=== PATIENT | male | born 1975 | race Caucasian/White ===

== ENCOUNTER → 2021-03-07 | Outpatient (CLI) | payer MEDICARE, OTHER ==
--- NOTE | 2021-03-07 09:08 | CT ---
EXAMINATION TYPE: CT chest wo con DATE OF EXAM: 03/07/2021 COMPARISON: None HISTORY: Hemoptysis CT DLP: 1266.2 mGycm. Automated Exposure Control for Dose Reduction was Utilized. TECHNIQUE: CT scan of the thorax is performed without IV contrast. FINDINGS: LUNGS: The lungs are grossly clear, there is no concerning parenchymal mass or nodule identified. T here is no pleural effusion or pneumothorax seen. The tracheobronchial tree is patent. A groundglass changes are seen involving the lungs likely related to respiratory motion rather than pneumonitis co rrelate clinically. Single bleb is seen in the superior segment right lower lobe and there is a calci fied granuloma in the left lung apex. MEDIASTINUM: Lack of IV contrast is noted to limit evaluation for mediastinal and especially hilar ad enopathy. There are no definitive greater than 1 cm hilar or mediastinal lymph nodes. No cardiomega ly or pericardial effusion is seen. OTHER: Hypertrophic and degenerative changes of the spine.. IMPRESSION: 1. Groundglass changes seen involving the lungs may be on the basis of respiratory motion artifact co rrelate clinically to exclude mild pneumonitis. 2. Calcified granuloma left lung apex
== END | disposition home or self-care (01) ==
LOC: RADCTMAIN 08:21
PROVIDERS: ATTEND Family Medicine
DX: J84.10 Pulmonary fibrosis, unspecified (principal)
CPT/HCPCS: 71250

== ENCOUNTER → 2024-02-26 | Outpatient (CLI) | payer MEDICARE, OTHER ==
--- NOTE | 2024-02-26 12:22 | CT ---
EXAMINATION TYPE: CT abdomen pelvis wo con CT DLP: 3554.1 mGycm, Automated exposure control for dose reduction was used. DATE OF EXAM: 02/26/2024 11:54 AM COMPARISON: None CLINICAL INDICATION:Male, 48 years old with history of R10.9 UNSPECIFIED ABDOMINAL PAIN; pain, consti pation. TECHNIQUE: Axial CT abdomen pelvis wo con;Sagittal and coronal reformats were created on a separate workstation. Contrast used: mL of , (none if empty) Oral contrast used: with Oral Contrast (none if empty) FINDINGS: LOWER CHEST: Unremarkable ABDOMEN LIVER: Diffusely hypoattenuating parenchyma. GALLBLADDER AND BILE DUCTS: Unremarkable. PANCREAS: Unremarkable. SPLEEN: Unremarkable. ADRENAL GLANDS: Unremarkable. KIDNEYS AND URETERS: No evidence of hydronephrosis or renal calculus. The ureters are unremarkable. PELVIS BLADDER: Unremarkable REPRODUCTIVE: Unremarkable. ABDOMEN & PELVIS STOMACH AND BOWEL: No evidence of bowel obstruction. PERITONEUM/RETROPERITONEUM: No evidence of pneumoperitoneum or free fluid. VASCULATURE: No evidence of aortic aneurysm. MUSCULOSKELETAL: No acute osseous abnormalities LYMPH NODES: No gross evidence for lymphadenopathy. SOFT TISSUE/ABDOMINAL WALL: Fat-containing umbilical hernia. IMPRESSION: 1. Thickening of the wall near the ileocecal valve unclear if this is due to underdistention. Few pr ominent right lower quadrant lymph nodes in the mesentery near this loop of bowel. Further evaluation recommended. 2. No additional acute process in the abdomen or pelvis. 3. Hepatic steatosis. 4. Fat-containing umbilical hernia.
== END | disposition home or self-care (01) ==
LOC: RADCTMAIN 09:43
PROVIDERS: ATTEND Family Medicine
DX: K76.0 Fatty (change of) liver, not elsewhere classified (principal); K42.9 Umbilical hernia without obstruction or gangrene; K63.89 Other specified diseases of intestine
CPT/HCPCS: 74176

== ENCOUNTER → 2024-07-10 | Outpatient (CLI) | payer MEDICARE, OTHER ==
--- NOTE | 2024-07-10 17:43 | CA ---
Transthoracic Echo Report Name: Marin Patel Age: 49 Gender: M : 1975 Exam Date: 07/10/2024 13:38 Exam Location: [facility] Ht (in): 72 Wt (lb): 400 Ordering Physician: Augusto Kim MD Attending/Referring Phys: Araseli Rajan [facility] Unit Technician Mera Coleman RDCS Procedure CPT: Indications: I51.7 Cardiomegaly Cardiac Hx: Technical Quality: Technically difficult study Contrast 1: Total Dose (mL): Contrast 2: Total Dose (mL): MEASUREMENTS (Male / Female) Normal Values 2D ECHO LV Diastolic Diameter PLAX 4.7 cm 4.2 - 5.9 / 3.9 - 5.3 cm LV Systolic Diameter PLAX 3.0 cm IVS Diastolic Thickness 1.3 cm 0.6 - 1.0 / 0.6 - 0.9 cm LVPW Diastolic Thickness 1.2 cm 0.6 - 1.0 / 0.6 - 0.9 cm LV Relative Wall Thickness 0.5 RV Internal Dim ED PLAX 3.3 cm LA Systolic Diameter LX 3.4 cm 3.0 - 4.0 / 2.7 - 3.8 cm LV Diastolic Volume MOD BP 86.1 cm??? 67 - 155 / 56 - 104 cm??? LV Systolic Volume MOD BP 41.4 cm??? - / 19 - 49 cm??? LV Ejection Fraction MOD BP 51.9 % >= 55 % LV Cardiac Index MOD BP 1283.6 cm???/min???m??? LV Diastolic Volume MOD 4C 127.2 cm??? LV Systolic Volume MOD 4C 65.9 cm??? LV Ejection Fraction MOD 4C 48.2 % LV Cardiac Index MOD 4C 1760.6 cm???/min???m??? LV Diastolic Length 4C 8.2 cm LV Systolic Length 4C 7.2 cm LV Diastolic Volume MOD 2C 67.6 cm??? LV Systolic Volume MOD 2C 31.5 cm??? LV Ejection Fraction MOD 2C 53.4 % LV Cardiac Index MOD 2C 1036.4 cm???/min???m??? LV Diastolic Length 2C 8.1 cm LV Systolic Length 2C 6.4 cm LA Volume 59.2 cm??? 18 - 58 / 22 - 52 cm??? LA Volume Index 18.9 cm???/m??? 16 - 28 cm???/m??? M-MODE Aortic Root Diameter MM 3.6 cm AV Cusp Separation MM 2.7 cm DOPPLER AV Peak Velocity 161.4 cm/s AV Peak Gradient 10.4 mmHg MV Area PHT 3.1 cm??? Mitral E Point Velocity 92.7 cm/s Mitral A Point Velocity 70.3 cm/s Mitral E to A Ratio 1.3 MV Deceleration Time 245.9 ms TR Peak Velocity 331.4 cm/s TR Peak Gradient 43.9 mmHg Right Ventricular Systolic Press 57.0 mmHg FINDINGS Left Ventricle Left ventricular ejection fraction is estimated at 50-55 %. Left ventricular cavity size normal. Mildly increased septal wall thickness. No obvious regional wall motion abnormality. Interventricular septal shortness suggestive of pulmonary hypertension. Right Ventricle Mild right ventricular dilatation. Severe pulmonary hypertension. Right ventricular systolic pressure estimated at 57 mm hg. Right Atrium Normal right atrial size. No right atrial thrombus or mass seen. Left Atrium Mildly increased left atrial volume. Mildly increased left atrial area. No left atrial thrombus or mass present. Mitral Valve Structurally normal mitral valve. No mitral stenosis, regurgitation or prolapse. Aortic Valve Trileaflet aortic valve. No aortic valve stenosis or regurgitation. Tricuspid Valve Structurally normal tricuspid valve. Mild tricuspid regurgitation. Pulmonic Valve Structurally normal pulmonic valve. No pulmonic regurgitation. Pericardium No pericardial or pleural effusion. Aorta Normal size aortic root and proximal ascending aorta. CONCLUSIONS Technically difficult study LVEF 50 to 55% No obvious regional wall motion abnormality Mild concentric LVH Interventricular septal flattening, suggestive of pulmonary hypertension RVSP estimated at 57 mmHg Mild RV dilatation No significant valvular dysfunction appreciated Previewed by: Dr Mario Patel (Electronically Signed) Final Date: 10 July 2024 17:43
== END | disposition home or self-care (01) ==
LOC: RADECHMAIN 13:25
PROVIDERS: ATTEND Family Medicine
DX: I51.7 Cardiomegaly
CPT/HCPCS: 93306

== ENCOUNTER → 2024-11-05 | Outpatient (CLI) | payer MEDICARE, OTHER ==
--- NOTE | 2024-11-10 14:00 | P.PCN ---
Date of Procedure: 11/05/24 Operative Findings: Home sleep study testing Date of service is 11/05/2024 Pertinent history 49-year-old male patient suspected to have obstructive sleep apnea. Based on that, the patient was referred for a home sleep study testing to rule out the possibility of underlying obstructive sleep apnea. Note that the patient has been diagnosed having obstructive sleep apnea more than 10 years ago. He has been noncompliant to CPAP therapy and he is coming in for a revaluation. The patient is morbidly obese. Pertinent physical findings The patient has a weight of 420 pounds with a body mass index of 57 Technical description The [employer] ApneaLink system was used to complete his home sleep study. This is a type III home sleep study evaluation. The total recording duration was 8 hours and 56 minutes. The study started at 10:14 PM and ended at 7:11 AM. There was a total of 8 hours and 41 minutes of flow and oxygen saturation monitoring Results The respiratory analysis showed a total of 254 obstructive hypopneas and no obstructive apneas. The resulting AHI was 29.2. Oxygenation analysis The baseline pulse ox while awake was 93%. Average pulse ox during sleep was 89%. The patient spent approximately 3 hours of 58 minutes of sleep time below pulse ox of 89% Cardiac summary Average heart rate was 59 with a minimum heart rate of 47 and the maximum heart rate 98 Assessment Moderate to severe HERMANN with an AHI of 29.2. Obstructive respiratory events were essentially in the form of hypopneas associated with nocturnal oxygen saturations. Nocturnal oxygen desaturation with a minimum pulse ox of 74%. Patient spent approximately 4 hours of sleep time below pulse ox of 89% Obesity with a BMI of 57 [place] score is at 5 Pulmonary hypertension Plan Recommend CPAP therapy. If agreeable, the patient will be brought into the sleep center to undergo a CPAP titration. Encourage weight loss Complete the workup for dyspnea and pulmonary hypertension by Dr. Velázquez
== END ==
LOC: 3 N SLEEP 17:14
PROVIDERS: ATTEND Internal Medicine Critical Care Medicine
DX: G47.33 Obstructive sleep apnea (adult) (pediatric) (principal); E66.9 Obesity, unspecified; I27.20 Pulmonary hypertension, unspecified; Z68.43 Body mass index [BMI] 50.0-59.9, adult

== ENCOUNTER 2025-04-24 13:03 | Emergency (ER) | payer MEDICARE, OTHER ==
[2025-04-24 13:09] VITALS: BP 157/95; PULSE 88; RESP 16; TEMP 98.3
--- NOTE | 2025-04-24 13:34 | ED ---
General Adult HPI - General Chief complaint: Abdominal Pain Stated complaint: Abd Pain Time Seen by Provider: 04/24/25 13:15 Source: patient, RN notes reviewed Mode of arrival: ambulatory Limitations: no limitations - History of Present Illness Initial comments: 50-year-old male presents to the emergency department for evaluation of lower and left-sided abdominal pain. He notes that this has been going on for around a week. He notes that the pain has been getting worse. He does endorse some constipation and bloating. Denies any nausea or vomiting. Denies any recent fever, chills. Denies any prior abdominal surgeries. - Related Data Allergies Allergy/AdvReac Type Severity Reaction Status Date / Time cefdinir Allergy Rash/Hives Verified 04/24/25 13:14 codeine Allergy Rash/Hives Verified 04/24/25 13:14 ketorolac [From Toradol] Allergy Rash/Hives Verified 04/24/25 13:14 latex Allergy Rash/Hives Verified 04/24/25 13:15 methocarbamol [From Robaxin] Allergy Rash/Hives Verified 04/24/25 13:14 Penicillins Allergy Rash/Hives Verified 04/24/25 13:09 Sulfa (Sulfonamide Allergy Rash/Hives Verified 04/24/25 13:09 Antibiotics) tizanidine [From Zanaflex] Allergy Rash/Hives Verified 04/24/25 13:14 Review of Systems ROS Statement: Those systems with pertinent positive or pertinent negative responses have been documented in the HPI. ROS Other: All systems not noted in ROS Statement are negative. Past Medical History Past Medical History: Hyperlipidemia, Hypertension Additional Past Medical History / Comment(s): chronic back neck pain Past Surgical History: Orthopedic Surgery Smoking Status: Never smoker General Exam Limitations: no limitations General appearance: alert, in no apparent distress Head exam: Present: atraumatic, normocephalic, normal inspection Eye exam: Present: normal appearance, PERRL, EOMI. Absent: scleral icterus, conjunctival injection, periorbital swelling ENT exam: Present: normal exam, mucous membranes moist Neck exam: Present: normal inspection. Absent: tenderness, meningismus, lymphad enopathy Respiratory exam: Present: normal lung sounds bilaterally. Absent: respiratory distress, wheezes, rales, rhonchi, stridor Cardiovascular Exam: Present: regular rate, normal rhythm, normal heart sounds. Absent: systolic murmur, diastolic murmur, rubs, gallop, clicks GI/Abdominal exam: Present: distended, tenderness (Diffuse abdominal tenderness to palpation), normal bowel sounds. Absent: soft, guarding, rebound, rigid Extremities exam: Present: normal inspection, full ROM, normal capillary refill. Absent: tenderness, pedal edema, joint swelling, calf tenderness Neurological exam: Present: alert, oriented X3 Psychiatric exam: Present: normal affect, normal mood Skin exam: Present: warm, dry, intact, normal color. Absent: rash Course Vital Signs 04/24/25 13:06 Temperature 98.3 F Pulse Rate 88 Respiratory 16 Rate Blood Pressure 157/95 O2 Sat by Pulse 94 L Oximetry Medical Decision Making - Medical Decision Making Was pt. sent in by a medical professional or institution ([facility], [employer]AT [employer]ER, urgent care, hospital, or group home...) When possible be specific @ -No Did you speak to anyone other than the patient for history (EMS, parent, family, police, friend...)? What history was obtained from this source @ -No Did you review nursing and triage notes (agree or disagree)? Why? @ -I reviewed and agree with nursing and triage notes Were old charts reviewed (outside hosp., previous admission, EMS record, old EKG, old radiological studies, urgent care reports/EKG's, group home records)? Report findings @ -No old charts were reviewed Differential Diagnosis (chest pain, altered mental status, abdominal pain women, abdominal pain men, vaginal bleeding, weakness, fever, dyspnea, syncope, headache, dizziness, GI bleed, back pain, seizure, CVA, palpatations, mental health, musculoskeletal)? @ -[Differential Abdominal Pain Men: Appendicitis, cholecystitis, diverticulosis, ischemic bowel, pancreatitis, hepatitis, UTI, gastroenteritis, AAA, incarcerated hernia, bowel obstruction, constipation, inflammatory bowel, hepatitis, peptic ulcer disease, splenic infarction, perforated viscus, testicular torsion, this is not meant to be an all-inclusive list EKG interpreted by me (3pts min.). @ -None X-rays interpreted by me (1pt min.). @ -None done CT interpreted by me (1pt min.). @ -CT of the abdomen pelvis reveals no evidence of acute process U/S interpreted by me (1pt. min.). @ -None done What testing was considered but not performed or refused? (CT, X-rays, U/S, labs)? Why? @ -None What meds were considered but not given or refused? Why? @ -None Did you discuss the management of the patient with other professionals (professionals i.e. , PA, BOAT LABORER, lab, RT, psych nurse, social security specialist, media relations associate, teacher, correctional officer lieutenant, high risk case manager)? Give summary @ -No Was smoking cessation discussed for >3mins.? @ -No Was critical care preformed (if so, how long)? @ -No Were there social determinants of health that impacted care today? How? (Homelessness, low income, unemployed, alcoholism, drug addiction, transportation, low edu. Level, literacy, decrease access to med. care, snf, rehab)? @ -No Was there de-escalation of care discussed even if they declined (Discuss DNR or withdrawal of care, Hospice)? DNR status @ -No What co-morbidities impacted this encounter? (DM, HTN, Smoking, COPD, CAD, Cancer, CVA, ARF, Chemo, Hep., AIDS, mental health diagnosis, sleep apnea, morbid obesity)? @ -None Was patient admitted / discharged? Hospital course, mention meds given and route, prescriptions, significant lab abnormalities, going to OR and other pertinent info. @ -Discharge. Patient presented the emergency department for evaluation of abdominal pain. Laboratory studies obtained revealingNo significant leukocytosis, hemoglobin 16.4; CMP is nonactionable. UA shows no evidence of infectious process. CT of the abdomen pelvis reveals no evidence of acute process. Patient was advised of finding. Advised to follow-up with his primary care provider he was understanding agreeable discharge plan. Patient stable at time of discharge. Case discussed with Dr. Moreno. Undiagnosed new problem with uncertain prognosis? @ -No Drug Therapy requiring intensive monitoring for toxicity (Heparin, Nitro, Insulin, Cardizem)? @ -No Were any procedures done? @ -No Diagnosis/symptom? @ -Abdominal pain, constipation Acute, or Chronic, or Acute on Chronic? @ -Acute Uncomplicated (without systemic symptoms) or Complicated (systemic symptoms)? @ -Uncomplicated Side effects of treatment? @ -No Exacerbation, Progression, or Severe Exacerbation? @ -No Poses a threat to life or bodily function? How? (Chest pain, [place], [place], pneumonia, PE, COPD, DKA, ARF, appy, cholecystitis, CVA, Diverticulitis, Homicidal, Suicidal, threat to staff... and all critical care pts) @ -No - Lab Data Result diagrams: 04/24/25 13:57 04/24/25 13:57 Lab Results 04/24/25 04/24/25 04/24/25 Range/Units 13:57 13:57 16:09 WBC 8.25 (4.50-10.00) 10*3/uL RBC 5.12 (4.40-5.60) 10*6/uL Hgb 16.4 (13.0-17.0) g/dL Hct 48.7 (39.6-50.0) % MCV 95.1 (80.0-97.0) fL MCH 32.0 (27.0-32.0) pg MCHC 33.7 (32.0-37.0) g/dL Plt Count 284 (140-440) 10*3/uL MPV 9.3 L (9.5-12.2) fL Immature Gran % (Auto) 0.1 % Neutrophils % 75.3 % Lymphocytes % 15.2 % Monocytes % 8.5 % Eosinophils % 0.2 % Basophils % 0.7 % Immature Gran # 0.01 (0.00-0.04) 10*3/uL Neutrophils # 6.21 (1.80-7.70) 10*3/uL Lymphocytes # 1.25 (0.90-5.00) 10*3/uL Monocytes # 0.70 (0.20-1.00) 10*3/uL Eosinophils # 0.02 L (0.04-0.35) 10*3/uL Basophils # 0.06 (0.00-0.10) 10*3/uL Sodium 139 (137-145) mmol/L Potassium 4.0 (3.5-5.1) mmol/L Chloride 103 (98-107) mmol/L Carbon Dioxide 24 (22-30) mmol/L Anion Gap 12 mmol/L BUN 16 (9-20) mg/dL Creatinine 0.60 L (0.66-1.25) mg/dL Est GFR (CKD-EPI)AfAm >90 (>60 ml/min/1.73 sqM) Est GFR (CKD-EPI)NonAf >90 (>60 ml/min/1.73 sqM) Glucose 119 H (74-99) mg/dL Calcium 9.6 (8.4-10.2) mg/dL Total Bilirubin 0.7 (0.2-1.3) mg/dL AST 25 (17-59) U/L ALT 25 (4-49) U/L Alkaline Phosphatase 104 (38-126) U/L NT-Pro-B Natriuret Pep <20 pg/mL Total Protein 7.9 (6.3-8.2) g/dL Albumin 4.5 (3.5-5.0) g/dL Amylase 39 (30-110) U/L Lipase 45 (23-300) U/L Urine Color Colorless Urine Appearance Clear (Clear) Urine pH 5.5 (5.0-8.0) Ur Specific [place] 1.050 H (1.001-1.035) Urine Protein Negative (Negative) Urine Glucose (UA) Negative (Negative) Urine Ketones Negative (Negative) Urine Blood Negative (Negative) Urine Nitrite Negative (Negative) Urine Bilirubin Negative (Negative) Urine Urobilinogen <2.0 (<2.0) mg/dL Ur Leukocyte Esterase Negative (Negative) Disposition Clinical Impression: Abdominal pain Disposition: HOME SELF-CARE Condition: Stable Instructions (If sedation given, give patient instructions): Abdominal Pain (ED) Additional Instructions: Please follow up with your doctor. Return to the emergency department for new or worsening symptoms. Is patient prescribed a controlled substance at d/c from ED?: No Referrals: Augusto Kim MD [Primary Care Provider] - 1-2 days Leonela Tobar MD [STAFF PHYSICIAN] - 1-2 days
[2025-04-24 14:02] LABS: Basophils # (A) 0.06 10*3/uL (0.00-0.10); Basophils % (A) 0.7 %; Eosinophils # (A) 0.02 10*3/uL (0.04-0.35); Eosinophils % (A) 0.2 %; HCT 48.7 % (39.6-50.0); HGB 16.4 g/dL (13.0-17.0); Lymphocytes # (A) 1.25 10*3/uL (0.90-5.00); Lymphocytes % (A) 15.2 %; MCH 32.0 pg (27.0-32.0); MCHC 33.7 g/dL (32.0-37.0); MCV 95.1 fL (80.0-97.0); Monocytes # (A) 0.70 10*3/uL (0.20-1.00); Monocytes % (A) 8.5 %; Neutrophils # (A) 6.21 10*3/uL (1.80-7.70); Neutrophils % (A) 75.3 %; Platelet Count 284 10*3/uL (140-440); RBC 5.12 10*6/uL (4.40-5.60); RDW 13.7 % (11.5-14.5); WBC 8.25 10*3/uL (4.50-10.00)
[2025-04-24 14:17] LABS: ALT 25 U/L (4-49); AST 25 U/L (17-59); African American GFR (CKD) >90 (>60 ml/min/1.73 sqM); Albumin 4.5 g/dL (3.5-5.0); Alkaline Phosphatase 104 U/L (38-126); Amylase 39 U/L (30-110); Anion Gap 12 mmol/L; Blood Urea Nitrogen 16 mg/dL (9-20); Calcium 9.6 mg/dL (8.4-10.2); Carbon Dioxide 24 mmol/L (22-30); Chloride 103 mmol/L (98-107); Glucose 119 mg/dL (74-99); Lipase 45 U/L (23-300); Non-African American GFR(CKD) >90 (>60 ml/min/1.73 sqM); Potassium 4.0 mmol/L (3.5-5.1); Sodium 139 mmol/L (137-145); Total Protein 7.9 g/dL (6.3-8.2)
[2025-04-24 14:25] LABS: NT-Pro-B-Type Natriuretic Pept <20 pg/mL
--- NOTE | 2025-04-24 14:55 | CT ---
EXAMINATION TYPE: CT abdomen pelvis w con DATE OF EXAM: 04/24/2025 2:45 PM COMPARISON: Prior CT abdomen/pelvis study 02/24/2024. CLINICAL INDICATION: Male, 50 years old with history of abdominal pain; abdomen pain with bloating na usea no vomiting. difficulty with bowel movements. TECHNIQUE: Axial CT abdomen pelvis w con;Sagittal and coronal reformats were created on a separate w orkstation. Contrast used:100 ml mL of Isovue 300 with IV Contrast, (none if empty) Oral contrast used: without Oral Contrast (none if empty) CT DLP: 4100.4 mGycm, Automated exposure control for dose reduction was used. FINDINGS: LOWER CHEST: Unremarkable ABDOMEN LIVER: Focal fatty infiltration adjacent to the falciform ligament in segment IVb GALLBLADDER AND BILE DUCTS: Unremarkable. PANCREAS: Unremarkable. SPLEEN: Unremarkable. ADRENAL GLANDS: Unremarkable. KIDNEYS AND URETERS: No evidence of hydronephrosis or renal calculus. The ureters are unremarkable. PELVIS BLADDER: No evidence for wall thickening or mass given limitations of exam. REPRODUCTIVE: Unremarkable. ABDOMEN & PELVIS STOMACH AND BOWEL: Stomach and duodenum are unremarkable. No evidence of bowel obstruction. PERITONEUM/RETROPERITONEUM: No evidence of pneumoperitoneum or free fluid. VASCULATURE: No evidence of aortic aneurysm. MUSCULOSKELETAL: No acute osseous abnormalities LYMPH NODES: No gross evidence for lymphadenopathy. SOFT TISSUE/ABDOMINAL WALL: Unremarkable IMPRESSION: No acute abnormality in the abdomen/pelvis or CT findings to explain reported symptoms. [facility], , 04/24/2025 2:53 PM
[2025-04-24 16:20] LABS: Bilirubin,Urine Negative (Negative); Blood,Urine Negative (Negative); Color,Urine Colorless; Glucose,Urine (UA) Negative (Negative); Ketones,Urine Negative (Negative); Leukocyte Esterase,Urine Negative (Negative); Nitrite,Urine Negative (Negative); PH, Urine 5.5 (5.0-8.0); Protein,Urine Negative (Negative); Urobilinogen,Urine <2.0 mg/dL (<2.0)
[2025-04-24 16:21] LABS: Specific Gravity,Urine 1.050 (1.001-1.035)
== END 2025-04-24 17:36 | disposition home or self-care (01) ==
LOC: EC 13:03
CPT/HCPCS: 36415; 74177; 80053; 81003; 82150; 83690; 83880; 85025; 99284